=== PATIENT | female | born 1945 | race Caucasian/White ===

== ENCOUNTER 2019-06-22 11:33 | Emergency (ER) | payer MEDICARE, BC ==
[~2019-06-22] VITALS: Ht 165.1 cm; Wt 73.0 kg
[~2019-06-22 11:33] MED LIST: ALBU8.5H8 PO; ASPI-1071 PO; ATOR40TA PO; FERR142T7 PO; GABA-534 PO; HYDR4TAB55 PO; ISOS60TA4 PO; LOSA25TA41 PO; METO50TA17 PO; NITR0.4T51 SL; RANI300T4 PO; TICA90TA PO; TRAM50TA2 PO
[2019-06-22 11:51] VITALS: BP 144/84
== END 2019-06-22 15:16 | disposition left against medical advice (07) ==
LOC: ER 11:33
DX: R11.2 Nausea with vomiting, unspecified (principal); Z53.21 Procedure and treatment not carried out due to patient leaving prior to being seen by health care provider